=== PATIENT | female | born 1950 | race Caucasian/White ===

== ENCOUNTER → 2018-02-02 14:09 | Outpatient (CLI) | payer MEDICARE, SELFPAY ==
--- NOTE | 2018-02-02 14:22 | XR_ITS ---
XR wrist RT min 3V HISTORY: ITS.REASON: RT WRIST PAIN ORDERING PHYSICIAN: Gerald Jesus MD PATIENT AGE: 67 years COMPARISON: None FINDINGS: No fracture or dislocation. No lytic or blastic change. There is mild generalized osteopenia... There is mild narrowing of the radial carpal joint and there is mild narrowing and sclerosis of the first carpometacarpal joint. The soft tissues are normal. 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
== END ==
PROVIDERS: PCP Family Medicine; Visit Provider Family Medicine
DX: M25.531 Pain in right wrist (principal)
CPT/HCPCS: 73110